=== PATIENT | male | born 1970 | race Caucasian/White ===

== ENCOUNTER 2025-10-05 12:47 | Emergency (ER) | payer SELFPAY ==
[~2025-10-05] VITALS: Ht 175.3 cm; Wt 81.7 kg
[2025-10-05 12:51] VITALS: BP 167/119
[2025-10-05] MEDS ORDERED: Proparacaine 0.5% Opth Soln 15 ML BTL LEFTEYE ONE (12:55)
== END 2025-10-05 14:13 | disposition left against medical advice (07) ==
LOC: ER 12:47
DX: T15.12XA Foreign body in conjunctival sac, left eye, initial encounter (principal)
CPT/HCPCS: 99283; A9270-GY